=== PATIENT | female | born 1990 | race Caucasian/White ===

== ENCOUNTER 2017-10-05 16:50 | Emergency (ER) | END 2017-10-05 17:58 | disposition left against medical advice (07) ==

== ENCOUNTER 2017-12-30 07:46 | Emergency (ER) | END 2017-12-30 09:53 | disposition home or self-care (01) ==

== ENCOUNTER 2018-06-30 10:31 | Emergency (ER) | payer SELFPAY ==
[~2018-06-30] VITALS: Ht 157.5 cm; Wt 80.9 kg
[~2018-06-30 10:31] MED LIST: FAMO-96 PO; IBUP200C11; ONDA4TAB14 PO; PHEN-716 PO; [UNRECOGNIZED DRUG - CODE] PO
[2018-06-30 10:35] VITALS: Ht 157.5 cm; Wt 80.9 kg
== END 2018-06-30 14:40 | disposition left against medical advice (07) ==
LOC: FTE 10:31
DX: Z53.21 Procedure and treatment not carried out due to patient leaving prior to being seen by health care provider (principal)

== ENCOUNTER 2018-07-25 18:19 | Emergency (ER) | payer SELFPAY ==
[~2018-07-25] VITALS: Ht 162.6 cm; Wt 80.4 kg
[2018-07-25 18:32] VITALS: Ht 162.6 cm; Wt 80.4 kg
[2018-07-26] MEDS ORDERED: AZITHROMYCIN 500 MG TAB PO ONE (02:30)
[2018-07-26] MEDS ORDERED: metroNIDAZOLE 500 MG TAB PO ONE (02:30)
[2018-07-26] MEDS ORDERED: CEFTRIAXONE 1 GM INJ IM ONE (02:30)
[2018-07-26] MEDS ORDERED: LIDOCAINE 1% (MPF) 5 ML VIAL INFIL ONE (02:30)
[2018-07-26] MEDS ORDERED: ACYCLOVIR 400 MG TAB PO ONE (03:00)
[2018-07-26] MEDS ORDERED: FLUC150T PO (03:01)
[2018-07-26] MEDS ORDERED: METR70GE15 VAG (03:01)
[2018-07-26] MEDS ORDERED: ACYC400T2 PO (03:01)
[2018-07-26] MEDS ORDERED: CEPH-443 PO (03:10)
[2018-07-26] MEDS ORDERED: ONDANSETRON (ODT) 4 MG TAB ODT STA (03:17)
[2018-07-26] MEDS ORDERED: ACETAMINOPHEN 500 MG TAB PO STA (03:17)
[2018-07-26] MEDS ORDERED: LIDO40SO8 MM (03:20)
[2018-07-26] MEDS ORDERED: IBUPROFEN 800 MG TAB PO ONE (03:30)
[2018-07-26] MEDS ORDERED: LIDOCAINE 5% 35 GM OINT TOP ONE (03:30)
[2018-07-26 03:36] VITALS: BP 132/70; PULSE 84; RESP 16
--- NOTE | 2018-08-07 13:56 | ERD ---
ER Documentation Chief Complaint Chief Complaint rash/pain/swelling vaginal area x 3 days HPI History of Present Illness: Patient coming in today with significant other. Patient reports 2 months ago that she had blisters to labia now has smaller rash on larger areas of vaginal and perineal area that is painful to touch. Patient had IUD for 9 years. Patient reports clear malodorous discharge. Pelvic pain present, with intermittent cramping At home pharmacological/nonpharmacological treatment for symptoms: Denies Denies social concerns; Denies recent foreign travel ROS All systems reviewed and are negative except as per history of present illness. Medications Home Meds Active Scripts Lidocaine 4% Topical (Lidocaine HCl) 4%-50 Ml Soln, 1 APPLIC MM TID PRN for genitalia pain, #1 BOT Prov:FREDY MONTERO NP 07/26/18 Cephalexin* (Keflex*) 500 Mg Capsule, 500 MG PO QID for urine infection for 7 Days, CAP Prov:FREDY MONTERO NP 07/26/18 Acyclovir* (Acyclovir*) 400 Mg Tablet, 400 MG PO QID for herpes treatment for 10 Days, TAB Prov:FREDY MONTERO NP 07/26/18 Fluconazole* (Diflucan*) 150 Mg Tablet, 150 MG PO ONCE for yeast infection, #1 TAB Patient may get prescription filled if she starts to get vaginal itching after antibiotic therapy. Prov:FREDY MONTERO NP 07/26/18 Metronidazole* (Metrogel* Vaginal) 0.75% -70 Gram Gel.w.appl, 1 APPFUL VAG BID for bacterial vaginosis for 7 Days, TUB Prov:FREDY MONTERO NP 07/26/18 Ondansetron (Ondansetron Odt) 4 Mg Tab.rapdis, 4 MG PO Q6H PRN for NAUSEA AND/OR VOMITING, #10 TAB Prov:MEI COTTON PA-C 12/30/17 Famotidine* (Pepcid*) 20 Mg Tablet, 20 MG PO BID for 30 Days, TAB Prov:MEI COTTON PA-C 12/30/17 Reported Medications Phenazopyridine Hcl* (Phenazopyridine Hcl*) 100 Mg Tablet, 200 MG PO TID, #1 11/10/12 Sulfamethoxazole/Trimethoprim (Smz-Tmp Ds 800-160 Mg Tablet) 1 Tab Tablet, 1 TAB PO BID, #1 11/10/12 Ibuprofen* (Advil*) 200 Mg Capsule 08/17/10 Allergies Allergies: Coded Allergies: No Known Allergy (Verified Allergy, Unknown, 08/21/06) PMhx/Soc History of Surgery: Yes ( X2,IUD) Anesthesia Reaction: No Hx Neurological Disorder: No Hx Respiratory Disorders: Yes (OCCASSIONAL BRONCHITIS) Hx Cardiac Disorders: No Hx Psychiatric Problems: No Hx Miscellaneous Medical Probl: No Hx Alcohol Use: Yes (Occasional alcohol use,) Hx Substance Use: Yes (Marijuana, crystal meth) Hx Tobacco Use: Yes (1 PACK PER DAY) Smoking Status: Current every day smoker FmHx Family History: No diabetes Physical Exam Physical Exam Const: No acute distress Head: Atraumatic Eyes: Normal Conjunctiva ENT: Normal External Ears, Nose and Mouth. Neck: Full range of motion. No meningismus. Resp: Clear to auscultation bilaterally Cardio: Regular rate and rhythm, no murmurs Abd: Soft, suprapubic tenderness, non distended. Normal bowel sounds obese.. Skin: No petechiae or rashes Back: No midline or flank tenderness Ext: No cyanosis, or edema Neur: Awake and alert Psych: Normal Mood and Affect Genitourinary: Vesicular lesions noted to labial majora, tender to palpation, erythema. Patient with creamy white malodorous discharge. Results 24 hrs Laboratory Tests Test 07/26/18 01:20 07/26/18 01:25 07/26/18 01:43 Urine Color YELLOW Urine Clarity CLOUDY Urine pH 5.0 Urine Specific [place] 1.024 Urine Ketones NEGATIVE mg/dL Urine Nitrite POSITIVE mg/dL Urine Bilirubin NEGATIVE mg/dL Urine Urobilinogen NEGATIVE mg/dL Urine Leukocyte Esterase 3+ Nazia/ul Urine Microscopic RBC 9 /HPF Urine Microscopic WBC > 182 /HPF Urine Bacteria MANY /HPF Urine Mucus MANY /HPF Urine Hemoglobin NEGATIVE mg/dL Urine Glucose NEGATIVE mg/dL Urine Total Protein NEGATIVE mg/dl Chlamydia trachomatis RNA (TMA) NOT DETECTED Chlamydia/GC Comment SEE NOTE Neisseria gonorrhoeae RNA (TMA) DETECTED POC Beta HCG, Qualitative NEGATIVE Herpes Simplex Virus I 27.00 index IgG Antibody Herpes Simplex Virus II IgG Ab 2.86 index Current Medications Medications Dose Sig/Celina Start Time Status Last (Trade) Ordered Route PRN Stop Time Admin Dose Reason Admin 1,000 mg ONCE ONCE 07/26/18 DC 07/26/18 Azithromycin PO 02:30 02:43 (Zithromax) 07/26/18 02:31 Ceftriaxone 1 gm ONCE ONCE 07/26/18 DC 07/26/18 Sodium IM 02:30 02:43 (Rocephin) 07/26/18 02:31 Lidocaine 2.1 ml ONCE ONCE 07/26/18 DC 07/26/18 (Xylocaine INFIL 02:30 02:43 1% (Mpf)) 07/26/18 02:31 500 mg ONCE ONCE 07/26/18 DC 07/26/18 Metronidazole PO 02:30 03:10 (Flagyl) 07/26/18 02:31 Acyclovir 400 mg ONCE ONCE 07/26/18 DC 07/26/18 (Zovirax) PO 03:00 03:10 07/26/18 03:01 Ibuprofen 800 mg ONCE ONCE 07/26/18 DC 07/26/18 (Motrin) PO 03:30 03:30 07/26/18 03:31 1,000 mg ONCE STAT 07/26/18 DC 07/26/18 Acetaminophen PO 03:17 03:31 (Tylenol 07/26/18 03:19 Tab) Ondansetron 4 mg ONCE STAT 07/26/18 DC 07/26/18 HCl (Zofran ODT 03:17 03:31 Odt) 07/26/18 03:19 Lidocaine 1 applic ONCE ONCE 07/26/18 DC (Lidocaine TOP 03:30 5% Oint) 07/26/18 03:31 Procedures/MDM ED course includes a thorough examination and history. Medications: -- Imaging:--- Labs: Urogenital wet mount, urinalysis Low suspicion for life-threatening medical emergency. Low suspicion for acute abdominal/gynecologic emergency requires hospitalization or immediate surgical intervention. Otherwise healthy patient presenting with constellation of symptoms likely representing urinary tract infection, herpes labialis, bacterial vaginal infection as characterized by history, physical exam findings, lab findings. Urinalysis positive for WBCs, positive for nitrates, positive for many bacteria, positive for RBCs, positive for 3+ leukocyte esterase. Urine negative. Gonorrhea chlamydia and HSV pending. Urogenital wet mount showing no Trichomonas, clue cells, positive bacteria and leukocytes. Will give patient treatment for gonorrhea chlamydia prophylactically while awaiting results. No respiratory distress, otherwise relatively well appearing and nontoxic. Patient educated on diagnoses, prescriptions, follow-up care, return precautions. Strict return precautions given for worsening condition; questions answered discharge. Safe sex education given. Outpatient treatment for herpes and prophylactic fungal vaginal infection. Will give lidocaine topical for pain control due to herpes. MetroGel for vaginal infection Disposition for discharge with followup in 2 days with PCP/clinic. Departure Diagnosis: Primary Impression: Urinary tract infection Urinary tract infection type: site unspecified Hematuria presence: with he maturia Qualified Codes: N39.0 - Urinary tract infection, site not specified; R31.9 - Hematuria, unspecified Additional Impressions: Herpes labialis Bacterial vaginal infection Condition: Stable Patient Instructions: Understanding Urinary Tract Infections (UTIs), Vaginal Infection: Bacterial Vaginosis, Herpes Labialis, Hsv: Type I Referrals: [facility] YOU HAVE RECEIVED A MEDICAL SCREENING EXAM AND THE RESULTS INDICATE THAT YOU DO NOT HAVE A CONDITION THAT REQUIRES URGENT TREATMENT IN THE EMERGENCY DEPARTMENT. FURTHER EVALUATION AND TREATMENT OF YOUR CONDITION CAN WAIT UNTIL YOU ARE SEEN IN YOUR DOCTORS OFFICE WITHIN THE NEXT 1-2 DAYS. IT IS YOUR RESPONSIBILITY TO MAKE AN APPOINTMENT FOR FOLOW-UP CARE. IF YOU HAVE A PRIMARY DOCTOR --you should call your primary doctor and schedule an appointment IF YOU DO NOT HAVE A PRIMARY DOCTOR YOU CAN CALL OUR PHYSICIAN REFERRAL HOTLINE AT IF YOU CAN NOT AFFORD TO SEE A PHYSICIAN YOU CAN CHOSE FROM THE FOLLOWING [facility] [address] [facility]. [facility] [address] [facility] [address] [facility] [facility] [address] [facility] [address] [facility]. [facility]. [address] [facility]. [facility] YOU HAVE RECEIVED A MEDICAL SCREENING EXAM AND THE RESULTS INDICATE THAT YOU DO NOT HAVE A CONDITION THAT REQUIRES URGENT TREATMENT IN THE EMERGENCY DEPARTMENT. FURTHER EVALUATION AND TREATMENT OF YOUR CONDITION CAN WAIT UNTIL YOU ARE SEEN IN YOUR DOCTORS OFFICE WITHIN THE NEXT 1-2 DAYS. IT IS YOUR RESPONSIBILITY TO MAKE AN APPOINTMENT FOR FOLOW-UP CARE. IF YOU HAVE A PRIMARY DOCTOR --you should call your primary doctor and schedule and appointment IF YOU DO NOT HAVE A PRIMARY DOCTOR YOU CAN CALL OUR PHYSICIAN REFERRAL HOTLINE AT . IF YOU CAN NOT AFFORD TO SEE A PHYSICIAN YOU CAN CHOSE FROM THE FOLLOWING [facility] IN[facility]: [facility] [address] [place] [address] [facility] [address] [place] [address] [facility] [address] [place] [address] Additional Instructions: Call your primary care doctor TOMORROW for an appointment during the next 2-3 days for reevaluation of your symptoms. See the doctor sooner or return here if your condition worsens before your appointment time. No sex for 10 days. You must inform your partner and new partners that you possibly have herpes. Herpes virus never leaves your system, and you will intermittently gets exacerbations in which she will get the red/painful bumps. This is sexually transmitted. Bacterial vaginosis is present. This is not sexual transmitted, but it requires treatment with antibiotic. Urinary tract infection will require 7 days of antibiotics previously taken every 6 hours. FREDY MONTERO NP Aug 07, 2018 13:56
== END 2018-07-26 03:36 | disposition home or self-care (01) ==
LOC: FTE 18:19
DX: N39.0 Urinary tract infection, site not specified (principal); F17.210 Nicotine dependence, cigarettes, uncomplicated; B00.1 Herpesviral vesicular dermatitis; N76.0 Acute vaginitis; R10.2 Pelvic and perineal pain
CPT/HCPCS: 81001; 81025; 86692; 87210; 87591; J0696; 36415